=== PATIENT | female | born 2000 | race Caucasian/White ===

== ENCOUNTER 2024-04-30 09:07 | Emergency (ER) | payer OTHER, SELFPAY ==
[2024-04-30] VITALS (14 sets, daily range): BP systolic 105–128; BP diastolic 49–67; PULSE 79–93; RESP 14–16; TEMP 36.4–36.9; O2SAT 86–100
--- NOTE | 2024-04-30 09:51 | ED.GENADUL_ITS ---
Discharge Plan Disposition Patient Disposition: Home Condition: Stable Discharge Details Clinical Impression: Migraine headache Primary Care Provider: None,None ED Provider: Jared Altman Home Meds and New Rx's Prescriptions: Continued escitalopram oxalate 5 mg tablet 5 mg PO DAILY Discharge Instructions Additional Instructions: Please contact your primary care physician to arrange follow-up. Return to the ER immediately for any worsening or new concerning symptoms. Stand Alone Forms: Work Release Discharge Data Discharge Date/Time-TO BE ENTERED AT DEPARTURE: 04/30/24 11:28 HPI General Mode of arrival: ambulatory . Date/Time Provider Initiated Documentation: 04/30/24 09:24 . Limitations to Documentation: no limitations . Information obtained by: patient . HPI Narrative: 23-year-old female with history of migraine headaches, here with acute headache. Patient notes 7 out of 10 throbbing headache that started around 6 AM this morning. She states she regularly has a migraine headache weekly that resolves with Excedrin and Tylenol. This headache feels typical and is not the worst headache of her life. She knows she was at work today and had to leave due to loud noise which was worsening her symptoms. She has not yet taken [id number] medication today. She has had Compazine Benadryl combination of the past which has helped with moderate to severe migraines. Patient denies associated fever. No neck stiffness. No visual changes, numbness tingling or weakness. Related Data Home Medications ?Medication ?Instructions ?Recorded ?Confirmed escitalopram oxalate 5 mg tablet 5 mg PO DAILY 04/30/24 04/30/24 Allergies Allergy/AdvReac Type Severity Reaction Status Date / Time azithromycin Allergy Severe sleepy Unverified 04/30/24 09:23 acetaminophen (From Allergy Intermediate Topical Unverified 04/30/24 09:23 Tylenol-Codeine) Irritation codeine (From Allergy Intermediate Topical Unverified 04/30/24 09:23 Tylenol-Codeine) Irritation oxycodone AdvReac Unknown Unknown Unverified 04/30/24 09:23 Penicillins AdvReac Unknown Unknown Unverified 04/30/24 09:23 General Stated Complaint: Headache ZAID: 4 Review of Systems All systems reviewed & are unremarkable except as noted in HPI and below Constitutional Constitutional: Denies fever(s) Neurologic Neurologic: Reports as per HPI Exam Const General: cooperative and no acute distress HENMT Head: normocephalic and atraumatic Mouth: moist mucous membranes Eyes Conjunctivae: normal conjunctivae Sclera: normal sclerae EOM: EOM intact bilaterally Resp Auscultation: clear to auscultation bilaterally, no rales, no rhonchi and no wheezes Cardio Rate: regular rate and not tachycardic Rhythm: regular rhythm GI Palpation: soft, not firm, no guarding, no masses, not rigid and nontender Skin General skin exam: no rashes or lesions noted Neuro General: patient alert, patient awake and tone normal Cranial Nerves: PERRL, accommodation normal, EOM intact bilaterally, no nystagmus, facial strength normal, tongue midline, hearing normal, able to rotate head bilaterally and able to elevate shoulders bilaterally Cognition: normal cognition Speech: speech normal Gait: normal gait Motor: strength 5/5 throughout Sensory Exam: no sensory deficits noted Extrem General: no edema Psych Appearance: grossly normal Mental Status: mental status grossly normal Course Vital Signs Vital signs: Vital Signs Temperature 36.9 C 04/30/24 09:17 Pulse 93 H 04/30/24 09:17 Respiratory Rate 16 04/30/24 09:17 Blood Pressure 128/59 L 04/30/24 09:17 Pulse Oximetry 99 04/30/24 09:17 Temperature 36.9 C 04/30/24 09:17 Temperature Source Oral 04/30/24 09:17 Pulse 93 H 04/30/24 09:17 Respiratory Rate 16 04/30/24 09:17 Blood Pressure 128/59 L 04/30/24 09:17 Blood Pressure Position Sitting 04/30/24 09:17 Pulse Oximetry 99 04/30/24 09:17 Oxygen Delivery Method Room Air 04/30/24 09:17 Oxygen Flow Rate 0 04/30/24 09:17 Pain Level 7 04/30/24 09:36 Medical Decision Making 1000 --23-year-old female with history of migraine headaches, here with acute headache consistent with typical migraines. Patient is neurologically intact. Hemodynamically stable. Plan to treat with Compazine, Benadryl and Tylenol. 1108 --patient reassessed and pain completely resolved. Plan for discharge with outpatient follow-up. Disposition decision was made weighing the risks and benefits of hospitalization versus outpatient treatment, the risk for further decompensation, and the patient's wishes. The patient was stable and requested discharge. Prior to discharge, my usual and customary return precautions were reviewed with the patient - this included follow-up instructions and reason to return to the emergency department if condition worsens, does not improve as expected, or other new concerns arise. Quality:SDOH Health Related Social Needs: No Data to Display PFSH All Active Problems (Updated 04/30/24 @ 10:02 by Jared Altman MD) Migraine headache (Chronic) Social History Smoking/Tobacco Use Status: Current every day Tobacco Type: e-cigarettes Tobacco: How many years used: 5 Smoking risk assessment performed?: Yes Alcohol Intake: never Drug use: Never Substance use type: does not use Housing: house Do you feel safe at home: Yes Do you feel safe in your relationship?: Yes
[2024-04-30] MEDS: Ibuprofen 400 MG TAB PO (10:04)
[2024-04-30] MEDS: Acetaminophen 325 MG TAB 650 MG PO (10:04)
[2024-04-30] MEDS: diphenhydrAMINE 50 MG/ML VIAL 25 MG IVP (10:05)
[2024-04-30] MEDS: Prochlorperazine 10 MG/2 ML VIAL IVP (10:05)
== END 2024-04-30 11:28 | disposition home or self-care (01) ==
LOC: ER 10:33
PROVIDERS: Emergency Provider Student in an Organized Health Care Education/Training Program
DX: G43.909 Migraine, unspecified, not intractable, without status migrainosus (principal); F17.290 Nicotine dependence, other tobacco product, uncomplicated
CPT/HCPCS: 96374; 96375; 99284; J0780; J1200